=== PATIENT | female | born 1965 | race Caucasian/White ===

== ENCOUNTER 2016-08-08 18:37 | Inpatient (IN) | payer OTHER ==
[~2016-08-08] VITALS: Ht 162.6 cm; Wt 50.3 kg
[2016-08-08 19:48] LABS: RED BLOOD COUNT 3.96 M/UL (4.00-5.10); WHITE BLOOD COUNT 11.3 K/UL (4.5-11.0)
[2016-08-08 20:19] LABS: BUN/CREATININE RATIO 19 (0-10)
[2016-08-09 07:43] LABS: HEMOGLOBIN 11.3 gm/dl (12.3-15.3); RED BLOOD COUNT 3.73 M/UL (4.00-5.10); WHITE BLOOD COUNT 10.5 K/UL (4.5-11.0)
[2016-08-09 07:59] LABS: BUN/CREATININE RATIO 11 (0-10)
[2016-08-09] MEDS ORDERED: MOBIC7.5 MG PO (17:42)
[2016-08-09] MEDS ORDERED: REQUIP0.5 MG PO (17:42)
[2016-08-09] MEDS ORDERED: TIZANIDINE HCL4 MG PO (17:43)
[2016-08-10 04:48] LABS: HEMOGLOBIN 10.1 gm/dl (12.3-15.3); RED BLOOD COUNT 3.37 M/UL (4.00-5.10); WHITE BLOOD COUNT 9.9 K/UL (4.5-11.0)
[2016-08-10 05:08] LABS: BUN/CREATININE RATIO 10 (0-10)
[2016-08-11 05:58] LABS: HEMOGLOBIN 10.7 gm/dl (12.3-15.3); RED BLOOD COUNT 3.58 M/UL (4.00-5.10); WHITE BLOOD COUNT 8.1 K/UL (4.5-11.0)
[2016-08-11 06:18] LABS: BUN/CREATININE RATIO 13 (0-10)
[2016-08-11] MEDS ORDERED: MOBIC7.5 MG PO (12:06)
[2016-08-11] MEDS ORDERED: CHERATUSSIN AC473 ML PO (12:08)
[2016-08-11] MEDS ORDERED: LEVAQUIN250 MG PO (12:09)
[2016-08-11] MEDS ORDERED: TAMIFLU75 MG PO (12:11)
== END 2016-08-11 12:56 | disposition home or self-care (01) | DRG 193 ==
LOC: ER1 18:37 → ZEROF 23:45 → M/S 23:45
PROVIDERS: Hospitalist; Internal Medicine; Physician Assistant; ADMIT Emergency Medicine
DX: J09.X1 Influenza due to identified novel influenza A virus with pneumonia (principal); J96.01 Acute respiratory failure with hypoxia; N39.0 Urinary tract infection, site not specified; M62.82 Rhabdomyolysis; J12.9 Viral pneumonia, unspecified; B96.20 Unspecified Escherichia coli [E. coli] as the cause of diseases classified elsewhere; G80.9 Cerebral palsy, unspecified; D64.9 Anemia, unspecified; R47.9 Unspecified speech disturbances; F17.200 Nicotine dependence, unspecified, uncomplicated; Z79.1 Long term (current) use of non-steroidal anti-inflammatories (NSAID); Z79.899 Other long term (current) drug therapy; Z88.8 Allergy status to other drugs, medicaments and biological substances; Z80.9 Family history of malignant neoplasm, unspecified; Z82.49 Family history of ischemic heart disease and other diseases of the circulatory system
CPT/HCPCS: 36415; 36600; 71010; 80048; 80053; 81001; 82550; 82553; 82803; 83605; 83690; 83874; 84484; 84703; 85025; 85027; 87040; 87077; 87086; 87186; 93005; 94640; 94664; 96361; 96365; 96375; 99285; C9113; J1650; J1956; J2405; J7030; J7050; Q9962